=== PATIENT | female | born 2000 | race Caucasian/White ===

== ENCOUNTER 2023-05-25 08:21 | Inpatient (IN) | payer OTHER ==
[2023-05-25 08:56] VITALS: BMI 24.5
[2023-05-25] MEDS ORDERED: ONDANSETRON *ODT* 4 MG TABLET SL PRN (10:04)
[2023-05-25] MEDS ORDERED: hydrOXYzine PAMOATE 25 MG CAPSULE (FP) PO PRN (10:04)
[2023-05-25] MEDS ORDERED: METHOCARBAMOL 500 MG TABLET PO PRN (10:04)
[2023-05-25] MEDS ORDERED: BISMUTH SUBSALICYLATE 524 MG/30 ML PO PRN (10:04)
[2023-05-25] MEDS ORDERED: NALOXONE HCL 0.4 MG/ML VIAL IM PRN (10:04)
[2023-05-25] MEDS ORDERED: BENZONATATE 200 MG CAPSULE PO PRN (10:04)
[2023-05-25] MEDS ORDERED: MAG HYDROX/AL HYDROX/SIMETH 30 ML UNIT-DOSE CUP PO PRN (10:04)
[2023-05-25] MEDS ORDERED: NALOXONE HCL (KLOXXADO) 8 MG SPRAY NS PRN (10:04)
[2023-05-25] MEDS ORDERED: BENZOCAINE/MENTHOL (CHLORASEPTIC ) LOZENGE MM PRN (10:04)
[2023-05-25] MEDS ORDERED: guaiFENesin 600 MG TABLET.ER (FP) PO PRN (10:04)
[2023-05-25] MEDS ORDERED: IBUPROFEN 600 MG TABLET (FP) PO PRN (10:04)
[2023-05-25] MEDS ORDERED: MAGNESIUM HYDROX 2400MG/30ML ORAL SUSPENSION 30 ML CUP PO PRN (10:04)
[2023-05-25] MEDS ORDERED: IBUPROFEN 400 MG TABLET (FP) PO PRN (10:04)
[2023-05-25] MEDS ORDERED: LOPERAMIDE HCL 2 MG CAPSULE PO PRN (10:04)
[2023-05-25] MEDS ORDERED: ACETAMINOPHEN 325 MG TABLET (FP) PO PRN (10:04)
[2023-05-25] MEDS ORDERED: POLYETHYLENE GLYCOL (HEALTHYLAX) 3350 17 GM PACKET PO PRN (10:04)
[2023-05-25] MEDS ORDERED: DICYCLOMINE HCL 10 MG CAPSULE PO PRN (10:04)
[2023-05-25] MEDS ORDERED: cloNIDine HCL 0.1 MG TABLET PO PRN (10:31)
[2023-05-25] MEDS ORDERED: methaDONE HCL 10 MG TABLET (FOR DETOX USE ONLY) PO ONE (10:31)
[2023-05-25] MEDS ORDERED: methaDONE HCL 10 MG TABLET (FOR DETOX USE ONLY) ONE (10:55)
[2023-05-25 17:41] VITALS: BP 110/58; PULSE 67; RESP 16; TEMP 98.9
[2023-05-25] MEDS ORDERED: MELATONIN 5 MG TABLETS PO SCH (22:00)
[2023-05-25] MEDS ORDERED: THIAMINE HCL 100 MG TABLET (FP) PO SCH (22:00)
[2023-05-26] MEDS ORDERED: PRENATAL VITAMINS W/ FOLIC ACID TABLET (FP) PO SCH (10:00)
[2023-05-27] MEDS ORDERED: methaDONE HCL 10 MG TABLET (FOR DETOX USE ONLY) PO ONE (10:00)
[2023-05-29] MEDS ORDERED: methaDONE HCL 10 MG TABLET (FOR DETOX USE ONLY) PO ONE (10:00)
== END 2023-05-25 20:09 | disposition left against medical advice (07) | DRG 770 ==
LOC: YASAS 08:21 → Y6N 10:19
PROVIDERS: ADMIT Allergy & Immunology; ATTEND Allergy & Immunology
PROC: HZ2ZZZZ Detoxification Services for Substance Abuse Treatment (ICD-10-PCS; principal; 2023-05-25)
DX: F11.23 Opioid dependence with withdrawal (principal); D47.2 Monoclonal gammopathy; I10 Essential (primary) hypertension; Z59.00 Homelessness unspecified; Z88.0 Allergy status to penicillin
CPT/HCPCS: 81025; 87635; 87811; 93005; 93010